=== PATIENT | female | born 2000 | race Caucasian/White ===

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

== ENCOUNTER → 2019-12-07 | Outpatient (CLI) | payer OTHER | END | disposition home or self-care (01) | LOC: LAB 16:29 | DX: N93.9 Abnormal uterine and vaginal bleeding, unspecified (principal) ==

== ENCOUNTER → 2020-01-11 | Outpatient (CLI) | payer OTHER | END | disposition home or self-care (01) | LOC: US 14:34 | PROVIDERS: ATTEND Obstetrics & Gynecology | DX: O20.9 Hemorrhage in early pregnancy, unspecified (principal); Z3A.01 Less than 8 weeks gestation of pregnancy ==

== ENCOUNTER 2020-01-26 18:29 | Emergency (ER) | payer OTHER | END 2020-01-26 18:45 | disposition left against medical advice (07) | LOC: ED 18:29 | DX: R07.89 Other chest pain (principal); Z53.21 Procedure and treatment not carried out due to patient leaving prior to being seen by health care provider ==

== ENCOUNTER 2020-04-24 14:26 | Emergency (ER) | payer OTHER ==
[~2020-04-24] VITALS: Ht 152.4 cm; Wt 68.0 kg
== END 2020-04-24 17:02 | disposition left against medical advice (07) ==
LOC: ED 14:26
DX: O20.9 Hemorrhage in early pregnancy, unspecified (principal); Z53.21 Procedure and treatment not carried out due to patient leaving prior to being seen by health care provider; Z3A.01 Less than 8 weeks gestation of pregnancy

== ENCOUNTER → 2020-05-01 | Outpatient (CLI) | payer OTHER | END | disposition home or self-care (01) | LOC: US 14:02 | PROVIDERS: ATTEND Obstetrics & Gynecology | DX: O46.91 Antepartum hemorrhage, unspecified, first trimester (principal); O34.81 Maternal care for other abnormalities of pelvic organs, first trimester; N83.12 Corpus luteum cyst of left ovary; Z3A.01 Less than 8 weeks gestation of pregnancy ==

== ENCOUNTER → 2020-11-13 | Outpatient (CLI) | payer OTHER | END | disposition home or self-care (01) | LOC: US 11:00 | PROVIDERS: ATTEND Obstetrics & Gynecology | DX: O32.1XX0 Maternal care for breech presentation, not applicable or unspecified (principal); Z3A.35 35 weeks gestation of pregnancy ==

== ENCOUNTER 2023-08-22 21:09 | Emergency (ER) | payer BC ==
[~2023-08-22] VITALS: Ht 154.9 cm; Wt 98.9 kg
[2023-08-22] MEDS ORDERED: VENLAFAXINE H37.5 M5 PO (21:24)
[2023-08-22] MEDS ORDERED: ACETAMINOPHEN 325 MG TAB PO ONE (21:30)
[2023-08-22] MEDS ORDERED: MEDROL DOSEPAK4 MG PO (22:02)
== END 2023-08-22 22:10 | disposition home or self-care (01) ==
LOC: ED 21:09
DX: J06.9 Acute upper respiratory infection, unspecified (principal); Z20.822 Contact with and (suspected) exposure to COVID-19; F32.A Depression, unspecified; Z88.6 Allergy status to analgesic agent; Z98.890 Other specified postprocedural states

== ENCOUNTER 2023-12-24 10:30 | Emergency (ER) | payer MEDICAID ==
[~2023-12-24] VITALS: Ht 152.4 cm; Wt 101.2 kg
[~2023-12-24 10:30] MED LIST changes: +MEDROL DOSEPAK4 MG PO; +VENLAFAXINE H37.5 M5 PO
[2023-12-24] MEDS ORDERED: IOHEXOL 300 MG/ML 100 ML VIAL IV ONE (12:55)
[2023-12-24 13:17] LABS: BASO # 0.1 10*3/uL (0.0-0.1); BASO % 0.9 % (0.0-1.0); EOS # 0.6 10*3/uL (0.0-0.4); EOS % 6.4 % (1.0-4.0); HEMATOCRIT 42.1 % (37.0-47.0); LYMPH # 3.2 10*3/uL (1.3-4.4); LYMPH % 34.7 % (27.0-41.0); MEAN CELL VOLUME 84.4 fl (81.0-99.0); MEAN CORPUSCULAR HGB 28.9 pg (27.0-31.0); MEAN CORPUSCULAR HGB CONC 34.2 g/dl (33.0-37.0); MEAN PLATELET VOLUME 10.8 fl (9.6-12.3); MONO # 0.7 10*3/uL (0.1-1.0); MONO % 7.3 % (3.0-9.0); NEUT # 4.7 10*3/uL (2.3-7.9); NEUT % 50.4 % (47.0-73.0); PLATELET COUNT AUTOMATED 308 10*3/uL (130-400); RED BLOOD COUNT 4.99 10*6/uL (4.10-5.10); RED CELL DISTRI WIDTH 12.9 % (0-14.5); WHITE BLOOD COUNT 9.3 10*3/uL (4.8-10.8)
[2023-12-24 13:27] LABS: ACT PARTIAL THROMBO TIME 25.3 SECONDS (20.0-32.1)
[2023-12-24 13:31] LABS: BUN 6 mg/dl (9-23); CHLORIDE 105 mmol/L (98-107); POTASSIUM 4.1 mmol/L (3.4-5.1)
== END 2023-12-24 17:31 | disposition home or self-care (01) ==
LOC: ED 10:30
PROVIDERS: Nurse Practitioner
DX: J92.9 Pleural plaque without asbestos (principal); Z88.6 Allergy status to analgesic agent

== ENCOUNTER 2025-04-13 16:26 | Emergency (ER) | payer MEDICAID ==
[~2025-04-13] VITALS: Ht 157.4 cm; Wt 94.8 kg
[~2025-04-13 16:26] MED LIST changes: +CIPRO500 MG PO
[2025-04-13] MEDS ORDERED: ESCITALOPRAM OX20 MG PO (16:33)
[2025-04-13] MEDS ORDERED: AMLODIPINE BESYL5 MG PO (16:33)
== END 2025-04-13 18:06 | disposition left against medical advice (07) ==
LOC: ED 16:26
DX: U07.1 COVID-19 (principal); Z53.21 Procedure and treatment not carried out due to patient leaving prior to being seen by health care provider